=== PATIENT | female | born 1945 | race Caucasian/White ===

== ENCOUNTER 2018-01-18 14:52 | Emergency (ER) | payer MEDICARE, MEDICAID ==
[~2018-01-18] VITALS: Ht 162.6 cm; Wt 79.6 kg
[2018-01-18 14:55] VITALS: BP 130/78
[2018-01-18 15:55] LABS: CLARITY,URINE CLOUDY (Clear); COLOR,URINE YELLOW (Yellow); GLUCOSE, URINE NEGATIVE (Neg); KETONES,URINE NEGATIVE (Neg); LEUKOCYTE ESTERASE ,URINE SMALL (Neg); NITRITES, URINE NEGATIVE (Neg); OCCULT BLOOD,URINE NEGATIVE (Neg); PH,URINE 5.5 (4.8-8.0); PROTEIN,URINE TRACE mg/dl (Neg); UA COLLECTION TYPE CLN CATCH MIDSTREAM
[2018-01-18 16:09] LABS: WBC,URINE 50-100 /HPF (0-4)
[2018-01-18 16:10] LABS: BACTERIA,URINE FEW /HPF (Neg); RBC,URINE 0-2 /HPF (0-2); SQUAMOUS EPITHELIAL CELL,UR FEW /LPF (FEW)
[2018-01-18] MEDS ORDERED: NITR100C6 PO (17:12)
== END 2018-01-18 17:55 | disposition home or self-care (01) ==
LOC: ER 14:52
DX: S32.028A Other fracture of second lumbar vertebra, initial encounter for closed fracture (principal); N39.0 Urinary tract infection, site not specified; I10 Essential (primary) hypertension; Z86.73 Personal history of transient ischemic attack (TIA), and cerebral infarction without residual deficits; Z88.5 Allergy status to narcotic agent; X58.XXXA Exposure to other specified factors, initial encounter; Y93.89 Activity, other specified; Y92.89 Other specified places as the place of occurrence of the external cause; Y99.8 Other external cause status
CPT/HCPCS: 72100; 81001; 87077; 87088; 87186; 99285